=== PATIENT | female | born 1970 | race African-American/Black ===

== ENCOUNTER 2017-04-08 09:15 | Inpatient (IN) | payer OTHER ==
--- NOTE | ~2017-04-08 | OR ---
Unit #: [id number] #: [id number] Patient: LAKIA CACERES [id number] [address] [place], [place] [address] [id number] MR#: [id number] NAME: LAKIA CACERES ROOM: [facility] Date of Procedure: 04/08/2017 Admission Date: 04/08/2017 Surgeon: Dandy Malone M.D. : 1970 Attending Physician: Dandy Malone M.D. 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 PROCEDURES PERFORMED 1. Right ankle fusion (51849). 2. Right medial malleolar nonunion repair (05868). ASSISTANTS Varsha and Yeison. ANESTHESIA Popliteal saphenous block and general. INDICATIONS FOR SURGERY The patient is a 46-year-old female, who injured her right ankle 20 years ago, which was treated in a cast. She has had worsening ankle pain over the past year. She now complains of medial ankle pain and anterior ankle pain. Standing x-rays demonstrate end-stage arthritis with loss of the tibiotalar joint space as well as a nonunion of the medial malleolus. The patient has pain with activities of daily living. She has failed to respond to conservative care. She is morbidly obese and is not a candidate for ankle replacement. She is therefore to undergo ankle fusion and repair of the nonunion. DESCRIPTION OF PROCEDURE The patient was taken to the operating room following popliteal saphenous block. She was placed in supine position. General anesthetic was induced. The right ankle was identified as the correct operative location during the time-out procedure. The IV antibiotic protocol was followed. The right leg was then prepped and draped in the usual sterile fashion. The leg was exsanguinated and the thigh tourniquet inflated to 300 mmHg. A 12 cm anterior longitudinal incision was made over the ankle joint. Subcutaneous tissue was carefully divided. The superficial peroneal nerve was identified and preserved. The extensor retinaculum was opened. The interval between the anterior tibial tendon and extensor hallucis longus tendons were developed. The neurovascular bundle was retracted laterally. The ankle joint was exposed through subperiosteal dissection. The power osteotome, curved curettes, and rongeurs were then utilized to remove the articular cartilage from both sides of the ankle joint. The underlying Unit #: [id number] #: [id number] Patient: JOESPH CACERESGENNEAElder subchondral bone was feathered with the power osteotome. The medial and lateral gutters were also cleared of all articular cartilage. The nonunion site was then opened and all fibrinous material was removed with a rongeur and with the power osteotome. The underlying bone on each side of the nonunion site was feathered with the osteotome. 3 mL of Augment platelet-derived growth factor was then placed into the tibiotalar joint with a small portion being placed into the nonunion site itself. The nonunion site was then reduced and fixated with an OrthoHelix 4.0 mm diameter cannulated screw placed from distal to proximal. The ankle joint was then held in neutral position with slight heel valgus and an inner fragmentary 7.0 mm diameter screw was placed from proximal medial to distal lateral. Excellent fixation was achieved. The [facility] anterior ankle fusion plate was then applied and pinned into place. Two 4.5 screws were placed in the talar neck. A 5.5 screw was placed into the talar body obliquely. The proximal portion of the plate was fixated with two 5.5 screws and two 4.5 screws. Intraoperative C-arm fluoroscopy documented satisfactory plate position and ankle position. The tourniquet was then released with a total tourniquet time of 1 hour 20 minutes. The anterior joint capsule was closed with 2-0 Vicryl. The extensor retinaculum was closed with 2-0 Vicryl. Subcutaneous tissue was closed with 3-0 Vicryl and the skin was closed with interrupted 3-0 nylon horizontal mattress sutures. Xeroform gauze, dressing, sponges, Webril, and a posterior fiberglass splint were applied. The patient was then transported to the recovery room in stable condition. ESTIMATED BLOOD LOSS Minimal. COMPLICATIONS None. SPECIMENS None. TOURNIQUET TIME 1 hour 20 minutes. Dictated byAlejo Stanford/светлана TD: 04/09/2017 03:03 JOB #: [id number] OPERATIVE REPORT Page 1 of 1 X Elder Malone MD PROCEDURE OPERATIVE NOTE
[~2017-04-08 09:15] MED LIST: ADVIL200 M1 PO
[2017-04-09 03:30] LABS: HEMATOCRIT 35.6 % (35.0-45.0); HEMOGLOBIN 11.3 gm/dL (12.0-16.0)
[2017-04-09] MEDS ORDERED: XARELTO10 MG PO (08:44)
[2017-04-09] MEDS ORDERED: PERCOCET 5/321 UDTAB PO (08:45)
== END 2017-04-09 13:28 | disposition home or self-care (01) | DRG 493 ==
LOC: CSUR 09:15 → CPACUOF 10:11 → CSUR 10:11 → CPACUOF 13:30 → CSUR 13:30 → C4B 14:50 → CPACUOF 14:50 → C4B 04-09 13:28
PROVIDERS: Orthopaedic Surgery
PROC: 0SGF04Z Fusion of Right Ankle Joint with Internal Fixation Device, Open Approach (ICD-10-PCS; 2017-04-08)
PROC: 0QSG04Z Reposition Right Tibia with Internal Fixation Device, Open Approach (ICD-10-PCS; principal; 2017-04-08 11:30)
DX: M19.171 Post-traumatic osteoarthritis, right ankle and foot (principal); S82.51XK Displaced fracture of medial malleolus of right tibia, subsequent encounter for closed fracture with nonunion; X58.XXXD Exposure to other specified factors, subsequent encounter
CPT/HCPCS: 84703; 85014; 85018; 94760; 97116; 97161; 97530; C1713; J0330; J0690; J2250; J2270; J2405; J2710; J2795; J3010